=== PATIENT | female | born 1990 | race African-American/Black ===

== ENCOUNTER 2022-01-17 18:41 | Emergency (ER) | payer OTHER ==
[~2022-01-17] VITALS: Ht 165.1 cm; Wt 111.8 kg
[2022-01-17] MEDS: PERTUSS(ACELL),DIPH,TET VAC/PF 0.5 ML SYRINGE IM. ONE (19:37)
[2022-01-17 20:45] VITALS: BP 120/81
== END 2022-01-17 20:55 | disposition home or self-care (01) ==
LOC: EMS 18:43
DX: O9A.212 Injury, poisoning and certain other consequences of external causes complicating pregnancy, second trimester (principal); O99.513 Diseases of the respiratory system complicating pregnancy, third trimester; S40.812A Abrasion of left upper arm, initial encounter; Z98.890 Other specified postprocedural states; Z3A.36 36 weeks gestation of pregnancy; X58.XXXA Exposure to other specified factors, initial encounter; Y93.89 Activity, other specified; Y92.810 Car as the place of occurrence of the external cause; Y99.8 Other external cause status
CPT/HCPCS: 90471; 90715; 99283